=== PATIENT | male | born 1945 | race Caucasian/White ===

== ENCOUNTER 2024-12-20 21:55 | Emergency (ER) | payer MEDICARE, SELFPAY ==
[2024-12-20 21:55] VITALS: PULSE 81; RESP 18; TEMP 36.6; O2SAT 99
--- NOTE | 2024-12-20 22:20 | CT_ITS ---
PROCEDURE: CTA ABD/PELVIS W/WO CONTRAST 12/21/2024 REASON FOR EXAM: ABD PAIN TECHNIQUE: CTA ABD/PELVIS W/WO CONTRAST Multiplanar Sagittal and Coronal images were obtained. CONTRAST: Isovue 370 VOLUME: 91 mL One or more dose reduction techniques were used (e.g., Automated exposure control, adjustment of the mA and/or kV according to patient size, use of iterative reconstruction technique). RADIATION DOSE SUMMARY: CTDlvol: 70 mGy DLP: 1382 mGycm COMPARISON: No FINDINGS: Under aerated lung bases. Normal heart size. Status post cholecystectomy. 1 cm liver hypodensity favoring benign etiology. Normal pancreas, spleen, kidneys prostate. No retroperitoneal adenopathy. There is right inguinal adenopathy, nonspecific. Esophageal reflux. Large hiatal hernia. Nondistended small bowel. Normal appendix. Left-sided inguinal hernia involving sigmoid colon, not causing obstruction. No acute large bowel findings. Lumbar spine degeneration. CT/CTA Abd/Pelvis W/WO Contrast IMPRESSION: Large hiatal hernia. The herniated part of the stomach is fluid-filled and mil dly distended, possibly there is partial obstruction at the esophageal hiatus. There is esophageal reflux. Consider en teric tube placement. Reading Location: [facility]
--- NOTE | 2024-12-20 22:20 | EKG12_ITS ---
Test Reason : DYSRHYTHMIA Blood Pressure : */* mmHG Vent. Rate : 76 BPM Atrial Rate : 76 BPM P-R Int : 140 ms QRS Dur : 94 ms QT Int : 404 ms P-R-T Axes : 34 -32 37 degrees QTcB Int : 454 ms Sinus rhythm with Premature atrial complexes Left axis deviation Abnormal ECG Confirmed by FRANDY DELGADO, LOUIS ([id number]), food editor CHIQUITA SHANKAR ([id number]) on 12/24/2024 7:53:03 AM Referred By: Confirmed By: LOUIS WISE MD
[2024-12-20] MEDS: DiphenhydrAMINE 50 MG/ML Syringe IV (22:34)
[2024-12-20] MEDS: 0.9% Normal Saline (1000mL) 1,000 ML 125 ML IV (22:34)
[2024-12-20 23:05] LABS: Hematocrit 48.5 % (40-54); Hemoglobin 16.3 g/dL (13.0-16.5); Immature Granulocytes Count 0.040 X10^3/uL (0.0-0.0); Mean Corp Hgb Conc 33.6 g/dL (32-36); Mean Corpuscular Volume 93.6 fL (80-94); Mean Platelet Vol. 10.5 fl (6.2-12.0); NRBC Flagged by Analyzer 0 % (0-5); Platelet Count 157 K/mm3 (150-450); RBC Distribution Width CV 13.1 % (11.6-14.6); RBC Distribution Width SD 44.9 fl (35.1-43.9); Red Blood Count 5.18 M/mm3 (4.6-6.2); White Blood Count 9.3 K/mm3 (4.4-11.0)
[2024-12-20 23:38] LABS: AST(SGOT) 33 U/L (<=37); Alanine Aminotransfer ALT/SGPT 20 U/L (<=46); Albumin, Serum 4.4 g/dL (3.4-4.8); Alkaline Phosphatase 87 U/L (40-129); Anion Gap 15 (5-15); BUN 14 mg/dL (4-19); BUN/Creat Ratio 11.8 RATIO (10-20); Bilirubin, Direct 0.20 mg/dL (0.00-0.30); Calcium,Total 9.6 mg/dL (7.6-11.0); Carbon Dioxide 22.3 mmol/L (21.0-32.0); Chloride 102 mmol/L (98-108); Estimated Creatinine Clearance 58.76 ml/min (50-250); Globulin 2.8 g/dL (2.2-4.2); Glucose 129 mg/dL (70-99); Lipase 48 U/L (13-75); Potassium 4.5 mmol/L (3.3-5.1)
[2024-12-21] VITALS (8 sets, daily range): BP systolic 137–192; BP diastolic 81–102; PULSE 104–122; RESP 16–25; TEMP 36.6–37.1; O2SAT 93–94
--- NOTE | 2024-12-21 01:26 | ED.VIS.GI ---
HPI HPI - GI History of Present Illness Chief Complaint: Abd Pain Informant: patient, spouse/S.O. and family Narrative Narrative: Presents here with spouse and daughter evaluation increasing left-sided abdominal cramping 2 hours prior to arrival. Nausea and vomiting prior to arrival. 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 No abdominal surgeries in the past. He is on baby aspirin no other blood thinners. Denies fever chills or sweats. Denies cough. Denies chest pains. Reports history of iodine allergy with CT scans premedicated in the past. 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 No trouble swallowing. Prior similar symptoms: No PFSH PFSH Home Medications ?Medication ?Instructions ?Recorded ?Last Taken ?Type levothyroxine 75 mcg tablet 75 mcg PO DAILY 12/21/24 Unknown History tamsulosin 0.4 mg capsule 0.4 mg PO Q24H 12/21/24 Unknown History Allergy/AdvReac Type Severity Reaction Status Date / Time iodine Allergy Unknown PT UNABLE Verified 12/20/24 22:00 TO RESPOND-NEEDS F/U Social History Smoking Status: Never smoker ROS ROS ED Constitutional Constitutional ED: Denies chills, fever(s) or sweats ENT ENT ED: Denies sore throat Cardiovascular Cardiovascular: Denies chest pain, leg edema, palpitations or racing heartbeat Respiratory/Chest Respiratory/Chest: Denies cough, dyspnea or dyspnea on exertion Gastrointestinal Gastrointestinal: Reports abdominal pain, nausea and vomiting; Denies diarrhea Genitourinary Genitourinary ED: Denies dysuria, hematuria or urinary frequency Musculoskeletal Musculoskeletal: Denies back pain, extremity pain or neck pain Integumentary Denies rash or wounds Neurologic Neurologic: Denies headache(s), paresthesias or weakness EXAM Physical Exam Const Vital Signs: 12/20/24 21:55 12/21/24 00:16 12/21/24 02:09 Temperature 98 F Temperature Source Oral Pulse Rate 81 104 H 110 H Respiratory Rate 18 16 20 H Blood Pressure 184/96 H 192/102 H Blood Pressure Mean 125 132 Pulse Ox 99 94 94 Oxygen Delivery Method Room Air Room Air Room Air 12/21/24 03:08 12/21/24 04:51 12/21/24 05:00 Temperature 98 F 98.3 F Temperature Source Oral Pulse Rate 122 H 122 H 120 H Respiratory Rate 18 18 25 H Blood Pressure 137/81 H 137/81 H 179/93 H Blood Pressure Mean 99 99 121 Pulse Ox 94 94 93 Oxygen Delivery Method Room Air Room Air 12/21/24 05:14 Temperature 98.3 F Temperature Source Oral Pulse Rate 120 H Respiratory Rate 25 H Blood Pressure 179/93 H Blood Pressure Mean 121 Pulse Ox 93 Oxygen Delivery Method Room Air Positive well nourished and well developed Constitutional Narrative: Uncomfortable, nontoxic. General Appearance ED: well developed HEENT Reports moist mucous membranes normocephalic and atraumatic Eyes General Eye ED: Yes normal appearance of both eyes Neck full ROM Chest Wall Chest: Negative for tenderness Resp normal respiratory effort and normal air movement Effort and Inspection: symmetric chest movement; Negative for respiratory distress Cardio regular rate, regular rhythm and no murmurs Peripheral Pulses: pulses 2+ throughout GI normal to inspection, nondistended, normoactive bowel sounds GI Narrative: Tender palpation epigastric mid abdomen. No pulsatile mass palpated. Palpation: Negative for guarding or rebound tenderness present Extremity normal to inspection General Extremety ED: Negative for edema or tenderness General Extremity: Negative for edema Neuro oriented x3 and no sensory deficits noted Sensorium / Orientation: awake and alert Skin no rashes or lesions noted and no wounds MDM MDM MDM Narrative Medical decision making narrative: Interventions / MDM: Differential diagnosis: Hiatal hernia, esophageal obstruction Diagnosis considered but do not suspect: Aortic aneurysm dissection however CT negative. My EKG interpretation: Sinus rate of 76, no ST or T wave changes PAC noted. EKG #2 at 0519: Sinus rate of 119, no ST or T wave changes. Imaging independently reviewed and interpreted by myself: CTA abdomen pelvis: Large hiatal hernia fluid-filled mild distended concerning for partial obstruction at the esophageal hiatus. KUB: NG tube in appropriate position. External documents reviewed: N/A Test considered but not ordered:N/A ED course: Patient pain vomiting prior to arrival. Pain mid abdomen discussed with him needs workup to rule out any aortic pathology. IV established abdominal labs lactic acid fluids morphine Zofran. Premedicated for IV dye with his history with Solu-Medrol and Benadryl. 0130: Abdominal labs were normal however lactate is 2.2. CT scan noted concerns for large hiatal hernia with partial obstruction at esophageal hiatus. 0132: I spoke with on-call surgeon Dr. Love, reports he does not do hiatal hernia repairs. With concerning obstruction agrees with NG tube. Will work on transfer. NG tube placed confirmed by KUB. Placed to low intermittent suction. 0250: I spoke with [facility] transfer with surgery Dr. Hanna, updated on findings. Requested ED to ED transfer for surgery evaluation. I spoke with the ED physician Dr. Almanzar, updated on patient. Patient due for repeat lactic acid this was ordered. Updated patient and family, NG tube confirmed suctioning. Pain was still there therefore additional morphine was ordered. 0500: Repeat lactic acid slightly elevated 2.5. He is ordered for a liter of fluids. Monitoring heart rate was in the 120s with fluids running. Did not jump from 81 on arrival. Repeat EKG ordered. 0520: Reports abdominal pain is gone only discomfort is the NG tube. EKG sinus rhythm. Will continue fluids. Awaiting transport. Re-evaluation: stable Disposition discussed with patient/family/significant other: Patient and family Case discussed with consulting clinician: General Surgery, [facility] surgery, [facility] ED physician This note was generated with [employer] dictation software. It may contain incorrect words, spelling, and punctuation that were not noted in checking the note before signing. Lab Data Attestation: I reviewed the patient's lab results. Labs: Laboratory Results - last 24 hr 12/20/24 12/21/24 22:52 03:10 WBC 9.3 RBC 5.18 Hgb 16.3 Hct 48.5 MCV 93.6 MCH 31.5 MCHC 33.6 RDW Std Deviation 44.9 H RDW Coeff of Han 13.1 Plt Count 157 MPV 10.5 Immature Gran % (Auto) 0.400 Neut % (Auto) 82.5 H Lymph % (Auto) 10.4 L Brown % (Auto) 5.7 Eos % (Auto) 0.6 Baso % (Auto) 0.4 Absolute Neuts (auto) 7.7 Absolute Lymphs (auto) 0.97 Nucleated RBC % 0 Sodium 139 Potassium 4.5 Chloride 102 Carbon Dioxide 22.3 Anion Gap 15 BUN 14 Creatinine 1.18 Estim Creat Clear Calc 58.76 Est GFR (MDRD) Non-Af 63 BUN/Creatinine Ratio 11.8 Glucose 129 H Lactic Acid 2.2 H* 2.5 H* Calcium 9.6 Total Bilirubin 0.48 Direct Bilirubin 0.20 AST 33 ALT 20 Alkaline Phosphatase 87 Total Protein 7.2 Albumin 4.4 Globulin 2.8 Lipase 48 Radiography Diagnostic Testing: Clinical Impression(s) from Imaging Studies Abdomen/Pelvis CTA 12/20/24 22:20 IMPRESSION: Large hiatal hernia. The herniated part of the stomach is fluid-filled and mildly distended, possibly there is partial obstruction at the esophageal hiatus. There is esophageal reflux. Consider enteric tube placement. Reading Location: [place] [id number] KUB X-Ray 12/21/24 02:12 IMPRESSION: Successful enteric tube placement. Reading Location: [facility] Discharge Plan Triage Chief Complaint: Abd Pain ED Provider: Don Huff Dx/Rx/DC Orders Prescriptions: No Action levothyroxine 75 mcg tablet 75 mcg PO DAILY tamsulosin 0.4 mg capsule 0.4 mg PO Q24H Primary Care Provider: BENY CHARLTON Referrals: BENY CHARLTON [Other] Print Language: Lithuanian
[2024-12-21] MEDS: Oxymetazoline 0.05% 1 SPRAY SPRAY.BTL 2 SPRAY NASAL (01:58)
--- NOTE | 2024-12-21 02:12 | RAD_ITS ---
PROCEDURE: ABDOMEN SINGLE VIEW (PORTABLE) 12/21/2024 REASON FOR EXAM: NG TUBE TECHNIQUE: ABDOMEN SINGLE VIEW (PORTABLE) COMPARISON: 12/21/2024 CT FINDINGS: This exam is centered on the diaphragm. Enteric tube tip in stomach lumen. Large hiatal hernia. Clear lung bases. No obvious free air. Nondistended upper abdomen bowel. Status post cholecystectomy. RAD/Abdomen Single View (Portable) IMPRESSION: Successful enteric tube placement. Reading Location: [place] [id number]
[2024-12-21 02:58] LABS: Reflex Lactate? Y
[2024-12-21] MEDS: 0.9% Normal Saline (1000mL) 1,000 ML 999 ML IV (04:31)
--- NOTE | 2024-12-21 04:54 | ED.RN ---
Attempted to call pt report to [facility]. Placed on hold for 12 minutes with no answer.
--- NOTE | 2024-12-21 05:13 | EKG12_ITS ---
Test Reason : DYSRHYTHMIA Blood Pressure : */* mmHG Vent. Rate : 119 BPM Atrial Rate : 119 BPM P-R Int : 158 ms QRS Dur : 94 ms QT Int : 326 ms P-R-T Axes : 70 -27 72 degrees QTcB Int : 458 ms Sinus tachycardia Otherwise normal ECG Confirmed by FRANDY DELGADO, LOUIS ([id number]), publications editor CHIQUITA SHANKAR ([id number]) on 12/24/2024 7:53:17 AM Referred By: Confirmed By: LOUIS WISE MD
--- NOTE | 2024-12-21 06:50 | ED.RN ---
called tania vasquez to give update on departure time.
--- NOTE | 2024-12-21 06:54 | ED.RN ---
Attempt made to call report to [facility]. No answer.
[2024-12-21] MEDS: 0.9% Normal Saline (1000mL) 1,000 ML 125 ML IV (06:59)
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
--- NOTE | 2024-12-21 10:25 | ED.RN ---
again attempted to call for report to [facility] ed but no answer.
== END 2024-12-21 10:21 | disposition short-term general hospital (02) ==
PROVIDERS: Emergency Provider Emergency Medicine; Visit Provider Emergency Medicine
DX: R10.9 Unspecified abdominal pain (principal); I25.10 Atherosclerotic heart disease of native coronary artery without angina pectoris; Z79.82 Long term (current) use of aspirin; Z95.1 Presence of aortocoronary bypass graft
CPT/HCPCS: 74018; 74174; 80048; 80076; 83605; 83690; 85025; 93005; 96361; 96374; 96375; 96376; 99285; Q9967; A4216; J2405